=== PATIENT | male | born 1970 | race Caucasian/White ===

== ENCOUNTER 2022-11-06 16:54 | Outpatient (OUT) | payer SELFPAY ==
--- NOTE | 2022-11-06 | XR_ITS ---
The [address] [address] Patient Name: FRANCIS CHE MRN: [id number] date: 1970 Sex: M Assigned Patient Location: [facility] Current Patient Location: Accession/Order Number: [id number] Exam Date: 11/06/2022 16:58 Report Date: 11/07/2022 10:57 At the request of: NON-STAFF PHYSICIAN Procedure: XR abdomen 1V EXAM: XR abdomen 1V HISTORY: ureteral stone COMPARISON: None. TECHNIQUE: AP view of the abdomen. FINDINGS: Nonobstructive bowel gas pattern is noted. There is no suspicious calcification. The osseous structures are intact. XR/XR abdomen 1V IMPRESSION: Nonobstructive bowel gas pattern. No suspicious renal calcification. Electronically authenticated by: ZAHRA DAVIS Date: 11/07/2022 10:57
== END 2022-11-06 16:55 | disposition home or self-care (01) ==
LOC: RAD 16:55
DX: N20.1 Calculus of ureter (principal)
CPT/HCPCS: 74018

== ENCOUNTER 2022-11-20 07:44 | Outpatient (OUT) | payer OTHER, SELFPAY ==
--- NOTE | 2022-11-20 07:49 | US_ITS ---
The [address] [address] Patient Name: FRANCIS CHE MRN: [id number] date: 1970 Sex: M Assigned Patient Location: [place] Current Patient Location: [place] Accession/Order Number: [id number] Exam Date: 11/20/2022 08:00 Report Date: 11/20/2022 08:50 At the request of: KATHERINE REYNA Procedure: US renal BI US renal BI, 11/20/2022 8:00 AM EDT INDICATION: Kidney Stone COMPARISON: Prior CT abdomen dated 04/15/2022 FINDINGS: The kidneys measure 10.3 x 4.9 x 5.2 cm on the right and 10.8 x 4.7 x 6 cm on the left side. No hydronephrosis is noted. Normal vascularity of kidneys. Focal hyperechogenic lesion in the superior pole of the left kidney measuring 5 x 6 x 4 mm most likely consistent with a nonobstructing nephrolithiasis. The visualized portion of the urinary bladder is unremarkable. The prostate measures 50 mL. US/US renal BI IMPRESSION: Nonobstructive nephrolithiasis in the superior pole of the left kidney. No hydronephrosis. Mildly enlarged prostate. Electronically authenticated by: BRANDY NUNN Date: 11/20/2022 08:50
== END 2022-11-20 07:45 | disposition home or self-care (01) ==
LOC: US 07:44
PROVIDERS: Visit Provider Urology
DX: N20.0 Calculus of kidney (principal)
CPT/HCPCS: 76775